=== PATIENT | male | born 1980 | race Caucasian/White ===

== ENCOUNTER 2016-12-07 20:46 | Emergency (ER) | payer BC, OTHER ==
[2016-12-07] MEDS ORDERED: GLUCAGON 1 MG KIT IM ONE (20:52)
--- NOTE | 2016-12-07 20:52 | PDOC ---
History of Present Illness - General History Source: Patient, Spouse, Old Records Exam Limitations: No Limitations - History of Present Illness Initial Comments: 12/07/16 21:04 The patient is a 35 year old male with no significant past medical history who presents to the emergency department today with a lodged foreign body in his throat. The patient does not appear to be in any major acute distress. The patient noted that he was eating steak and a piece became stuck in his throat. The patient drank water in attempt to alleviate symptoms but was unable to keep water down. The patient notes he has experienced this phenomenon before but symptoms resolved at home. PAST MEDICAL HISTORY: no significant history PAST SURGICAL HISTORY: no significant history FAMILY HISTORY: Grandmother: esophageal cancer SOCIAL HISTORY: Pt lives with family and is employed. MEDICATIONS: reviewed ALLERGIES: As per nursing notes General: No fevers or chills, no weakness, no weight loss HEENT: (+) Unable to swallow secretions or liquids prior to presenting to the emergency department. No change in vision. No sore throat, No ear pain CardioVascular: No chest pain or shortness of breath Respiratory:No cough, or wheezing Gastrointestinal: no nausea, vomiting, diarrhea or constipation, No rectal bleeding Genitourinary: No dysuria, hematuria, or frequency Musculoskeletal: No joint or muscle pain or swelling Neurologic: No headache, vertigo, dizziness or loss of consciousness Psychiatric: nor depression Skin: No rashes or easy bruising Endocrine: no increased thirst or abnormal weight change Allergic: no skin or latex allergy All other systems reviewed and normal GENERAL: The patient is awake, alert, and fully oriented, in no acute distress. HEAD: Normal with no signs of trauma. EYES: Pupils equal, round and reactive to light, extraocular movements intact, sclera anicteric, conjunctiva clear. EXTREMITIES: Normal range of motion, no edema. NEUROLOGICAL: Normal speech, normal gait. PSYCH: Normal mood, normal affect. SKIN: Warm, Dry, normal turgor, no rashes or lesions noted. 12/07/16 21:11 <Deshaun Gayle - Last Filed: 12/07/16 21:11> - General History Source: Patient Exam Limitations: No Limitations - History of Present Illness Initial Comments: 12/07/16 22:08 A portion of this note was documented by scribe services under my direction. I have reviewed the details of the note, within reason, and agree with the documentation. The case summary and management plan written by me. Assessment and plan: This is a 35-year-old male who comes in complaining of a foreign body sensation in his esophagus post eating a piece of steak that he thinks was caught. Patient said that he was unable to swallow any of his secretions or solids or liquids for approximately 20 minutes prior to coming in. Patient said N route to the emergency room he thinks that the obstruction resolved. Here in the emergency room patient was able to swallow solids as well as liquids without any discomfort or vomiting. Patient was given referral to a GI doctor as this is happened in the past. Patient discharged home. <Des Carcamo I - Last Filed: 12/07/16 22:09> - General Chief Complaint: Choking Sensation Stated Complaint: STEAK STUCK IN THROAT Time Seen by Provider: 12/07/16 20:51 Past History <Deshaun Gayle - Last Filed: 12/07/16 21:11> <Des Carcamo I - Last Filed: 12/07/16 22:09> - Past Medical History Allergies/Adverse Reactions: Allergies Allergy/AdvReac Type Severity Reaction Status Date / Time No Known Allergies Allergy Verified 12/07/16 20:50 Home Medications: Ambulatory Orders Amoxicillin - [Amoxicillin 500mg Capsule -] 500 mg PO TID 12/07/16 Ibuprofen 800 mg PO TID PRN 12/07/16 *Physical Exam - Vital Signs Last Vital Signs Temp Pulse Resp BP Pulse Ox 97.5 F L 66 15 114/67 99 12/07/16 20:49 12/07/16 20:49 12/07/16 20:49 12/07/16 20:49 12/07/16 20:49 <Deshaun Gayle - Last Filed: 12/07/16 21:11> *DC/Admit/Observation/Transfer - Attestations Scribe Attestion: 12/07/16 21:04 Documentation prepared by Deshaun Gayle, acting as nuclear medical tech for Des Carcamo MD. <Deshaun Gayle - Last Filed: 12/07/16 21:11> - Discharge Dispostion Admit: No <Des Carcamo I - Last Filed: 12/07/16 22:09> Diagnosis at time of Disposition: Food impaction of esophagus Qualifiers: Encounter type: initial encounter Qualified Code(s): T18.128A - Food in esophagus causing other injury, initial encounter - Discharge Dispostion Disposition: HOME Condition at time of disposition: Good - Referrals Referrals: Eric Patino MD [Staff Physician] - - Patient Instructions Printed Discharge Instructions: Esophageal Dysphagia Additional Instructions: It is very important that you follow-up with a GI doctor for further evaluation and endoscopy of your esophagus. If you need a GI doctor call Dr. Patino early next week at [phone] for an appointment. Return to the emergency department immediately with ANY new, persistent or worsening symptoms. Continue any medications as previously prescribed by your physician. You should follow up with your primary doctor as soon as possible regarding today's emergency department visit. . Please make sure your doctor reviews the results of your emergency evaluation. Thank you for coming to the Emergency Department today for your care. It was a pleasure to see you today. Please note that your evaluation is INCOMPLETE until you follow-up with your doctor.
[2016-12-07 20:55] VITALS: BP 114/67; PULSE 66; TEMP 97.5; BMI 20.7
== END 2016-12-07 21:16 | disposition home or self-care (01) ==
LOC: FER 20:46
DX: T18.128A Food in esophagus causing other injury, initial encounter (principal); X58.XXXA Exposure to other specified factors, initial encounter; Y93.89 Activity, other specified
CPT/HCPCS: 99282-25